=== PATIENT | female | born 1985 | race Hispanic/Latino ===

== ENCOUNTER 2024-08-19 09:54 | Inpatient (IN) | payer BC ==
[2024-08-19] MEDS ORDERED: NA CHLORIDE 0.9% 1,000 ML ONE ×2 (10:39→13:24)
[2024-08-19] MEDS ORDERED: FAMOTIDINE 20 MG/2 ML VIAL IV ONE (10:39)
[2024-08-19] MEDS ORDERED: HYDROMORPHONE HCL 0.5 MG/0.5 ML INJ ONE (10:46)
--- NOTE | 2024-08-19 10:56 | ER ---
Nurse's Notes [facility] Name: Kelley Crump Age: 38 yrs Sex: Female : 1985 Arrival Date: 08/19/2024 Time: 09:54 Bed 12 Private MD: Diagnosis: Other cholelithiasis without obstruction;Abdominal pain, Generalized Presentation: 08/19 10:15 Chief complaint: Patient states: lower abd , mid to lower back pain , had CT done iw yesterday that showed a gallstone ordered by Dr. Brown, consulted Lexx ad was told to come to ER if pain was severe, pain started a week ago, + nausea and diarrhea , denies urine symptoms. Coronavirus screen: At this time, the client does not indicate any symptoms associated with coronavirus-19. Ebola Screen: No symptoms or risks identified at this time. Initial Sepsis Screen: Does the patient meet any 2 criteria? No. Patient's initial sepsis screen is negative. Does the patient have a suspected source of infection? No. Patient's initial sepsis screen is negative. Risk Assessment: Do you want to hurt yourself or someone else? Patient reports no desire to harm self or others. 10:15 Method Of Arrival: Ambulatory iw 10:15 Acuity: JUDITH 3 iw Historical: - Allergies: 10:17 No Known Allergies; iw - PMHx: 10:17 Migraine; IBS; PCOS; Endometriosis of vagina; Anxiety; Depressive disorder; iw - PSHx: 10:17 hysterectomy; Tonsillectomy; carpal tunnel; Appendectomy; iw - Immunization history:: Adult Immunizations not up to date. - Infectious Disease History:: Denies. - Social history:: Smoking status: Patient denies any tobacco usage or history of. Patient uses alcohol, but reports only rare drinking. Assessment: 10:47 General: Appears distressed, uncomfortable. Pain: Complains of pain in abdomen. GI: ll1 Reports upper abdominal pain, diarrhea, nausea, vomiting. 11:21 Reassessment: No changes from previously documented assessment. Patient and/or family ll1 updated on plan of care and expected duration. Pain level reassessed. Patient is alert, oriented x 3, equal unlabored respirations, skin warm/dry/pink. 11:58 Reassessment: No changes from previously documented assessment. Patient and/or family ll1 updated on plan of care and expected duration. Pain level reassessed. Patient is alert, oriented x 3, equal unlabored respirations, skin warm/dry/pink. Vital Signs: 10:15 BP 129 / 83; Pulse 95; Resp 16; Temp 97(TE); Pulse Ox 100% on R/A; Weight 58.06 kg; iw Height 5 ft. 2 in. ; Pain 9/10; 10:15 Body Mass Index 23.41 (58.06 kg, 157.48 cm) iw 10:15 Pain Scale: Adult iw ED Course: 09:55 Patient arrived in ED. al6 10:00 Billy Wilson DO is Attending Physician. ms3 10:17 Triage completed. iw 10:18 Arm band placed on. iw 10:48 Arminda Diamond, RENNY is Primary Nurse. ll1 10:48 Initial lab(s) drawn, by me, sent to lab. Inserted saline lock: 22 gauge in right iw antecubital area, using aseptic technique. Blood collected. Flushed with 10 mL NS. 10:55 Rodrick Harrell MD is Hospitalizing Provider. ms3 Administered Medications: 10:47 Drug: Famotidine IVP 20 mg IVP once; dilute with 10 mL 0.9% NaCl; give over 2 minutes iw Route: IVP; Site: right antecubital; 11:21 Follow up: Response: No adverse reaction ll1 10:48 Drug: NS 0.9% IV 1000 ml IV at 1 bolus Per protocol; to be given as a bolus over 60 iw minutes Route: IV; Rate: 1 bolus; Site: right antecubital; 10:48 Drug: HYDROmorphone IVP 0.5 mg IVP once Route: IVP; Site: right antecubital; ll1 11:21 Follow up: Response: No adverse reaction; Pain is decreased; RASS: Alert and Calm (0) ll1 11:21 Drug: Piperacillin-Tazobactam IVPB 3.375 grams IVPB once over 60 mins; (mix in NS 100 ll1 mL) Route: IVPB; Infused Over: 60 mins; Site: right antecubital; Outcome: 10:56 Decision to Hospitalize by Provider. ms3 13:00 Admitted to ER Hold. Please see [facility] for further documentation. aa5 13:00 Condition: stable 13:00 Instructed on the need for admit, Demonstrated understanding of instructions, 15:28 Patient left the ED. aa5 Signatures: Pam Romero RN RN iw Bel Barrientos RN RN aa5 Arminda Diamond RN RN ll1 Billy Wilson DO DO ms3 Brooklynn Morris6 Corrections: (The following items were deleted from the chart) 10:19 10:15 BP 129 / 83; Pulse 95bpm; Resp 16bpm; Pulse Ox 100% RA; 58.06 kg; Height 5 ft. 2 iw in.; BMI: 23.4; Pain 9/10, Adult; iw
--- NOTE | 2024-08-19 10:56 | EDPHYS ---
Physician Documentation [facility] Name: Kelley Crump Age: 38 yrs Sex: Female : 1985 Arrival Date: 08/19/2024 Time: 09:54 Bed 12 Private MD: ED Physician Billy Wilson HPI: 08/19 10:40 This 38 yrs old Female presents to ER via Ambulatory with complaints of ms3 Abdominal Pain, Back Pain, Nausea. 10:40 38-year-old female with past medical history of migraines, IBS, PCOS, endometriosis, ms3 anxiety, depression presents to the emergency department for epigastric abdominal pain that has been ongoing for 1 week. Patient states the pain radiates to her back. She states the pain is a 9/10. She denies any alleviating or inciting factors. Patient states last time she ate was yesterday.. Historical: - Allergies: 10:17 No Known Allergies; iw - PMHx: 10:17 Migraine; IBS; PCOS; Endometriosis of vagina; Anxiety; Depressive disorder; iw - PSHx: 10:17 hysterectomy; Tonsillectomy; carpal tunnel; Appendectomy; iw - Immunization history:: Adult Immunizations not up to date. - Infectious Disease History:: Denies. - Social history:: Smoking status: Patient denies any tobacco usage or history of. Patient uses alcohol, but reports only rare drinking. ROS: 10:40 Constitutional: Negative for fever, and chills. Cardiovascular: Negative for chest ms3 pain, and palpitations. Respiratory: Negative for shortness of breath, cough, wheezing, and pleuritic chest pain, 10:40 MS/Extremity: Negative for injury and deformity, Skin: Negative for injury, rash, and discoloration, 10:40 Abdomen/GI: Positive for abdominal pain, nausea, diarrhea, Negative for vomiting, Exam: 10:40 Constitutional: This is a well developed, well nourished patient who is awake, alert, ms3 and in no acute distress. Cardiovascular: Regular rate and rhythm with a normal S1 and S2. No gallops, murmurs, or rubs. Normal PMI, no JVD. No pulse deficits. Respiratory: Lungs have equal breath sounds bilaterally, clear to auscultation and percussion. No rales, rhonchi or wheezes noted. No increased work of breathing, no retractions or nasal flaring. 10:40 Skin: Warm, dry with normal turgor. Normal color with no rashes, no lesions, and no evidence of cellulitis. 10:40 Abdomen/GI: Inspection: abdomen appears normal, Bowel sounds: normal, Palpation: moderate abdominal tenderness, in all quadrants, Vital Signs: 10:15 BP 129 / 83; Pulse 95; Resp 16; Temp 97(TE); Pulse Ox 100% on R/A; Weight 58.06 kg; iw Height 5 ft. 2 in. ; Pain 9/10; 10:15 Body Mass Index 23.41 (58.06 kg, 157.48 cm) iw 10:15 Pain Scale: Adult iw MDM: 10:38 Medical Screening Exam initiated ms3 10:40 Differential diagnosis: Cholelithiasis Pancreatitis versus abdominal pain. ms3 10:42 External Records Reviewed: Outpatient labs: Labs from August 19, 2024. Sodium 138, ms3 potassium 4.2, chloride 107, bicarb 28, glucose 97, creatinine 0.82. AST 13, ALT 19, alk phos 79, total bilirubin 0.7. CBC white blood count 6.6, hemoglobin 15.7, hematocrit 45.1, platelets 203.. Outpatient radiology: CT abdomen pelvis without IV contrast performed August 18, 2024 reveals prominent right adnexal 4.7 cm mass versus complex cyst or conglomerate of cysts. Large cholesterol containing gallstones. No other acute or concerning abnormalities in the abdomen or pelvis.. 10:59 Data reviewed: vital signs, nurses notes, lab test result(s), radiologic studies, and ms3 as a result, I will admit patient. Consideration of Admission/Observation Patient was admitted/placed on observation. I considered the following discharge prescriptions or medication management in the emergency department Medications were administered in the Emergency Department. See MAR. Counseling: I had a detailed discussion with the patient and/or guardian regarding the historical points, exam findings, and any diagnostic results supporting the discharge/admit diagnosis, lab results, radiology results, the need for further work-up and treatment in the hospital. ED course: Discussed case with Dr. Hallman and he will take patient to operating room tomorrow afternoon. Discussed case with Dr. Harrell's team and they accept patient for admission. Discussed plan for admission with patient she understands and agrees with plan.. 08/19 10:18 Order name: Lipase; Complete Time: 11:27 ms3 08/19 12:06 Order name: Urinalysis w/ reflexes EDMS 08/19 12:06 Order name: CBC with Automated Diff EDMS 08/19 12:06 Order name: CBC with Automated Diff EDMS 08/19 12:06 Order name: CBC with Automated Diff EDMS 08/19 12:06 Order name: CBC with Automated Diff EDMS 08/19 12:06 Order name: CBC with Automated Diff EDMS 08/19 12:06 Order name: Comprehensive Metabolic Panel EDMS 08/19 12:06 Order name: Comprehensive Metabolic Panel EDMS 08/19 12:06 Order name: Comprehensive Metabolic Panel EDMS 08/19 12:06 Order name: Comprehensive Metabolic Panel EDMS 08/19 12:06 Order name: Comprehensive Metabolic Panel EDMS 08/19 10:18 Order name: IV Saline Lock; Complete Time: 10:44 ms3 08/19 10:18 Order name: Labs collected and sent; Complete Time: 10:44 ms3 Administered Medications: 10:47 Drug: Famotidine IVP 20 mg IVP once; dilute with 10 mL 0.9% NaCl; give over 2 minutes iw Route: IVP; Site: right antecubital; 11:21 Follow up: Response: No adverse reaction ll1 10:48 Drug: NS 0.9% IV 1000 ml IV at 1 bolus Per protocol; to be given as a bolus over 60 iw minutes Route: IV; Rate: 1 bolus; Site: right antecubital; 10:48 Drug: HYDROmorphone IVP 0.5 mg IVP once Route: IVP; Site: right antecubital; ll1 11:21 Follow up: Response: No adverse reaction; Pain is decreased; RASS: Alert and Calm (0) ll1 11:21 Drug: Piperacillin-Tazobactam IVPB 3.375 grams IVPB once over 60 mins; (mix in NS 100 ll1 mL) Route: IVPB; Infused Over: 60 mins; Site: right antecubital; Disposition Summary: 08/19/24 10:56 Hospitalization Ordered Notes: Hospitalization Status: Inpatient Admission ms3 Provider: Rodrick Harrell ms3 Location: Telemetry/[facility]Sur (Inpatient) ms3 Condition: Stable ms3 Problem: new ms3 Symptoms: are unchanged ms3 Bed/Room Type: Standard ms3 Room Assignment: 408(08/19/24 13:57) bc6 Diagnosis - Other cholelithiasis without obstruction ms3 - Abdominal pain, Generalized ms3 Forms: - Medication Reconciliation Form ms3 - SBAR form ms3 - Leadership Thank You Letter ms3 Signatures: Dispatcher [employer] EDMS Pam Romero RN RN iw Arminda Diamond RN RN ll1 Billy Wilson DO DO ms3 Kady Sanchez bc6 Corrections: (The following items were deleted from the chart) 10:18 10:18 LIPASE+C.LAB.BRZ ordered. EDMS EDMS 10:50 10:18 CBC+H.LAB.BRZ ordered. EDMS EDMS 10:50 10:18 COMPREHENSIVE METABOLIC PANEL+C.LAB.BRZ ordered. EDMS EDMS 13:57 10:56 ms3 bc6
[2024-08-19] MEDS ORDERED: PIPERACIL/TAZO 3.375 GM VIAL IV ONE (11:11)
[2024-08-19] MEDS ORDERED: MORPHINE 2 MG/ML SYR ONE (13:24)
[2024-08-19] MEDS ORDERED: ONDANSETRON 4 MG/2 ML VIAL ONE (13:24)
[2024-08-19] MEDS: NA CHLORIDE 0.9% 1,000 ML IV SCH (13:38)
[2024-08-19] MEDS: ONDANSETRON 4 MG/2 ML VIAL IV PRN (13:38)
[2024-08-19] MEDS: MORPHINE 2 MG/ML SYR IV PRN (13:38)
[2024-08-19 14:26] VITALS: BMI 23.3
--- NOTE | 2024-08-19 15:35 | P.HP ---
Certification for Inpatient Patient admitted to: Observation With expected LOS: <2 Midnights Patient will require the following post-hospital care: None Practitioner: I am a practitioner with admitting privileges, knowledge of patient current condition, hospital course, and medical plan of care. Services: Services provided to patient in accordance with Admission requirements found in Title 42 Section 412.3 of the Code of Federal Regulations Patient History Date of Service: 08/19/24 Reason for admission: Abdominal tenderness History of Present Illness: 38-year-old female with history of GERD, allergies, hyperlipidemia presents to the emergency department with chief complaint of abdominal pain. She reports that she has been having abdominal pain for 7 to 8 days now but has been significantly worse last 2 days with associated nausea and chills. She denies similar episodes in the past, she reports that the pain goes all the way across her abdomen and around her back. She had outpatient labs performed earlier today which showed a normal chemistry, normal LFTs white blood cell count of 6.6 hemoglobin 15.7 hematocrit 45.1 as well as an outpatient CT of the abdomen pelvis on 08/18/2024 which showed prominent right adnexal 4.7 cm mass versus complex cyst or conglomerate of cysts. This can be better evaluated on a dedicated pelvic ultrasound. Large cholesterol containing gallstones. No other acute or concerning abnormalities in the abdomen or pelvis. Patient still with ongoing abdominal/back pain, she has more tenderness in the left side of her abdomen and the paraspinous muscles. ED staff discussed case with general surgery who wished patient be admitted to the hospitalist service and will consult. Patient informed about pelvic mass versus cyst and given copy of CT report. Allergies No Known Allergies Allergy (Unverified 08/19/24 12:21) Home Medications: Atorvastatin Calcium 40 mg PO BEDTIME 08/19/24 Cetirizine HCl [Zyrtec] 10 mg PO DAILY 08/19/24 Montelukast [Singulair*] 10 mg PO DAILY 08/19/24 - Past Medical/Surgical History -: Migraines -: IBS -: PCOS -: Endometriosis-vagina -: anxiety -: depression -: seasonal allergies -: section -: Hysterectomy with bladder lift -: Appendix -: Carpal tunnel/ulnar surgery right wrist Psychosocial/ Personal History: Lives at home with family - Social History Smoking Status: Never smoker Alcohol use: No CD- Drugs: No Caffeine use: Yes Place of Residence: Home Review of Systems 10-point ROS is otherwise unremarkable General: Chills Gastrointestinal: Nausea, Abdominal Pain Physical Examination - Vital Signs Temperature: 97.8 F Blood Pressure: 110/72 Pulse: 73 Respirations: 16 Pulse Ox (%): 98 - Physical Exam General: Alert, In no apparent distress, Oriented x3 HEENT: Atraumatic, PERRLA, EOMI Neck: Supple, 2+ carotid pulse no bruit, No LAD Respiratory: Clear to auscultation bilaterally, Normal air movement Cardiovascular: Regular rate/rhythm, Normal S1 S2 Gastrointestinal: Normal bowel sounds, Tenderness (Primarily left-sided abdominal tenderness, tenderness to palpation of the back as well) Musculoskeletal: No tenderness Integumentary: No rashes Neurological: Normal speech, Normal strength at 5/5 x4 extr, Normal affect - Studies Laboratory Data (last 24 hrs) 08/19/24 08/19/24 10:45 10:18 WBC Cancelled Hgb Cancelled Hct Cancelled Plt Count Cancelled Sodium Cancelled Potassium Cancelled BUN Cancelled Creatinine Cancelled Glucose Cancelled Total Bilirubin Cancelled AST Cancelled ALT Cancelled Alkaline Phosphatase Cancelled Lipase 46 Assessment and Plan - Plan Assessment: Abdominal tenderness/back pain with cholelithiasis Pelvic mass/cysts GERD Hyperlipidemia Allergies Plan: Abdominal tenderness/back pain with cholelithiasis Pelvic mass/cysts General Surgery consulted Clear liquids for now, n.p.o. after midnight Continue empiric antibiotics with Zosyn As needed pain medications and antiemetics Serial abdominal exams Discussed CT findings in regards to pelvic mass versus cyst, patient given CT report GERD Hyperlipidemia Allergies Continue home medications when verified DVT PPX: SCD Code status: Full Discharge Plan: Home Plan to discharge in: 24 Hours - Advance Directives Does patient have a Living Will: No Does patient have a Durable POA for Healthcare: No - Code Status/Comfort Care Code Status Assessed: Yes (Full code) Critical Care: No Time Spent Managing Pts Care (In Minutes): 62
[2024-08-19 17:04] LABS: Urine Bilirubin NEGATIVE (Negative); Urine Blood Negative (Negative); Urine Clarity Clear (Clear); Urine Color Colorless (Yellow); Urine Glucose NEGATIVE (Negative); Urine Ketones TRACE (Negative); Urine Microscopic Reflex YN NO UMIC; Urine Nitrite NEGATIVE (Negative); Urine Protein NEGATIVE (Negative); Urine Urobilinogen Normal (Normal)
[2024-08-19] MEDS: PIPER TAZO 3.375 GM in NA CHLORIDE 0.9% 100 ML IV SCH (17:28)
--- NOTE | 2024-08-19 19:05 | CON ---
Date of Consultation: 08/19/2024 History Of Present Illness: Ms. Benson is a 38-year-old patient who came with abdominal pain for t he entire week. She has been trying to treat that at home. She has history of irritable bowel syndr ome. She has not been improved, but she has been commenting on it including seeing the GI doctor, harleen welsh upper endoscopies, colonoscopies, but last week she has been having abdominal pain. The last 2 days, it got worse. 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 Review of Systems: Nausea, vomiting, bloating, abdominal pain. No dysuria, hematuria, hematochezia, or melena. No rece nt traveling out of the country. No family member sick at home. Review of systems ten points, other chavez, unremarkable. Allergies: NONE. Medications: Reviewed including Zyrtec and Singulair. Past Medical History: Includes migraines endometriosis, PCOS, anxiety, depression. Past Surgical History: Include hysterectomy with bladder lift and , appendix, carpal tunnel and ulnar surgery. Social History: She does not smoke. She does not drink alcohol. Physical Examination: Vital Signs: Reviewed. General: The patient is awake, alert, oriented x3. HEENT: Pupils are equal and reactive and anicteric. Neck: Supple. Chest: Clear. Heart: S1, S2. Abdomen: Epigastric right upper quadrant tenderness with Hernandez sign positive. Breasts: Deferred. Rectal: Deferred. Pelvic: Deferred. Extremities: Good capillary refill. Laboratory Data: Blood work shows WBC count and chemistry, it is canceled, I am not sure exactly wha t that means. The lipase is 46. I believe it is going to be repeated. The patient had a CAT scan d one of the abdomen and pelvis yesterday that shows a prominent right adnexal mass versus a complex cy st. Large gallstones. Assessment: This is a 38-year-old patient with epigastric right upper quadrant pain for a week, radi ating to the back, nausea, vomiting, diagnosed with symptomatic cholelithiasis, acute cholecystitis. The patient wants the gallbladder out. So we explained the options of laparoscopic, possible open c holecystectomy with benefits, alternatives, and risks including, but not limited to, infection, bleed ing, damage to adjacent structures, anesthesia complication, choledocholithiasis, bile leak, pancreat itis, [place], and even . She also understands this may not relieve any symptoms, she might need mor e than one surgical intervention. AYSE/ROYER Voice ID: [id number] Report ID: [id number]
[2024-08-19 21:29] LABS: Absolute Lymphocytes (CBC) 1.9 K/uL (0.7-4.9); Absolute Monocytes 0.5 K/uL (0.1-1.3); Absolute Neutrophil 4.3 K/uL (1.8-8.0); Basophils % 0.5 % (0-1.3); Eosinophils % 0.3 % (0-4.4); Hematocrit 39.8 % (36.0-45.0); Hemoglobin 14.1 g/dL (12.0-15.0); Lymphocytes % 27.4 % (15.3-44.8); MCH 31.1 pg (27.0-35.0); MCHC 35.5 g/dL (32.0-36.0); MCV 87.7 fL (80-100); Monocytes % 7.9 % (3.3-12.3); Neutrophils % 63.9 % (41.7-73.7); Platelets 169 thou/uL (152-406); RBC Red Blood Cell Count 4.54 M/uL (3.86-4.86); Red Cell Distribution Width 12.1 % (12.1-15.2)
[2024-08-19 21:48] LABS: ALT/SGPT 17 U/L (13-56); Albumin 3.8 g/dL (3.4-5.0); Albumin/Globulin Ratio 1.1 (1.1-1.8); Alkaline Phosphatase 63 U/L (45-117); Anion Gap 9.7 mEq/L (5.0-15.0); BUN Blood Urea Nitrogen 7 mg/dL (7-18); Bicarbonate 25 mEq/L (21-32); Bilirubin Direct 0.2 mg/dL (0-0.2); Bilirubin Indirect, Calculated 0.6 mg/dL (0.2-0.8); Bilirubin Total 0.8 mg/dL (0.2-1.0); Globulin 3.5 g/dL (2.3-3.5); Glomerular Filtration Rate 115 ml/min (=/>90); Glucose Level 82 mg/dL (74-106); Potassium 3.7 mEq/L (3.5-5.1); Protein, Total 7.3 g/dL (6.4-8.2); Sodium Level 140 mEq/L (136-145)
[2024-08-19 21:51] LABS: AST/SGOT < 10 U/L (15-37)
[2024-08-20] MEDS: NA CHLORIDE 0.9% 100 ML ONE (00:10)
[2024-08-20] MEDS: KETOROLAC 30 MG/ML INJ IV ONE (05:07)
[2024-08-20 06:41] LABS: Absolute Lymphocytes (CBC) 1.6 K/uL (0.7-4.9); Absolute Monocytes 0.4 K/uL (0.1-1.3); Absolute Neutrophil 3.5 K/uL (1.8-8.0); Basophils % 0.6 % (0-1.3); Eosinophils % 0.8 % (0-4.4); Hematocrit 39.5 % (36.0-45.0); Hemoglobin 13.9 g/dL (12.0-15.0); Lymphocytes % 28.4 % (15.3-44.8); MCH 30.9 pg (27.0-35.0); MCHC 35.1 g/dL (32.0-36.0); MCV 88.2 fL (80-100); MPV 9.1 fL (7.6-11.3); Monocytes % 7.2 % (3.3-12.3); Nucleated Red Blood Cells % 0.1 % (0-0); Platelets 170 thou/uL (152-406); RBC Red Blood Cell Count 4.49 M/uL (3.86-4.86); Red Cell Distribution Width 12.2 % (12.1-15.2)
[2024-08-20 07:01] LABS: ALT/SGPT 16 U/L (13-56); Albumin 3.6 g/dL (3.4-5.0); Albumin/Globulin Ratio 1.1 (1.1-1.8); Alkaline Phosphatase 58 U/L (45-117); Anion Gap 5.1 mEq/L (5.0-15.0); BUN Blood Urea Nitrogen 7 mg/dL (7-18); Bicarbonate 25 mEq/L (21-32); Bilirubin Total 0.8 mg/dL (0.2-1.0); Globulin 3.3 g/dL (2.3-3.5); Glomerular Filtration Rate 106 ml/min (=/>90); Glucose Level 87 mg/dL (74-106); Potassium 4.1 mEq/L (3.5-5.1); Protein, Total 6.9 g/dL (6.4-8.2); Sodium Level 137 mEq/L (136-145)
[2024-08-20 07:02] LABS: AST/SGOT < 10 U/L (15-37)
[2024-08-20] MEDS: ENOXAPARIN 40 MG/0.4 ML SQ SCH (07:20)
--- NOTE | 2024-08-20 10:36 | P.PN ---
Date of Service: 08/20/24 Subjective: Still reporting similar abdominal pain/back pain to yesterday No acute overnight Waiting likely surgical cholecystectomy today ROS: 10 point ROS as noted above, otherwise negative Physical exam GEN: Alert, oriented, NAD HEENT: Normal conjunctiva, sclera anicteric CV: Regular rate and rhythm, no edema Pulm: Nonlabored respirations on room air ABD: Soft, mild abdominal pain, worse in the left side of the abdomen, nondistended MSK: No joint tenderness Integumentary: No rashes Neuro: Normal speech, normal affect Vitals reviewed Assessment: Abdominal tenderness/back pain with cholelithiasis Pelvic mass/cysts GERD Hyperlipidemia Allergies Plan: Abdominal tenderness/back pain with cholelithiasis Pelvic mass/cysts General Surgery consulted NPO for possible cholecystectomy today Continue empiric antibiotics with Zosyn As needed pain medications and antiemetics Serial abdominal exams Discussed CT findings in regards to pelvic mass versus cyst, patient given CT report-General Surgery likely to evaluate intraoperatively as well GERD Hyperlipidemia Allergies Continue home medications when verified DVT PPX: SCD Code status: Full Discharge Plan: Home Plan to discharge in: 24 Hours Time Spent Managing Pts Care (In Minutes): 35
[2024-08-20] MEDS: FENTANYL CITR 100 MCG/2 ML IV ONE (10:53)
[2024-08-20] MEDS ORDERED: NEOSTIGMINE 1 MG/ML -10 ML VIAL ONE (12:55)
[2024-08-20] MEDS ORDERED: KETOROLAC 30 MG/ML INJ ONE (12:55)
[2024-08-20] MEDS ORDERED: ROCURONIUM 50 MG/5 ML VIAL IV ONE (12:55)
[2024-08-20] MEDS ORDERED: dexAMETHasone 10 MG/ML VIAL ONE (12:55)
[2024-08-20] MEDS ORDERED: ONDANSETRON 4 MG/2 ML VIAL ONE (12:55)
[2024-08-20] MEDS ORDERED: propofoL 200 MG/20 ML VIAL IV ONE (12:55)
[2024-08-20] MEDS ORDERED: FENTANYL CITR 100 MCG/2 ML ONE (12:55)
[2024-08-20] MEDS ORDERED: LIDOCAINE 1% MPF 5 ML VIAL ONE (12:55)
[2024-08-20] MEDS ORDERED: GLYCOPYRROLATE 0.2 MG/ML SYR ONE ×2 (12:55)
[2024-08-20] MEDS ORDERED: MIDAZOLAM HCL 2 MG/2 ML INJ ONE (12:57)
[2024-08-20] MEDS: Ringers Lactate 1,000 ML IV ONE (12:59)
[2024-08-20] MEDS ORDERED: Mastisol Adhesive Liq ONE (13:47)
--- NOTE | 2024-08-20 13:48 | P.BOP ---
Preoperative diagnosis: acute cholecystitis, symptomatic cholelithiasis Postoperative diagnosis: same Primary procedure: Laparoscopic cholecystectomy Leather Toggler: Ayanna Kim (Farida) Estimated blood loss: <10cc Specimen: gb Anesthesia: General Complications: None Transferred to: Recovery Room Condition: Good
[2024-08-20] MEDS: HYDROCODONE/APAP 5/325 MG TAB PO PRN (15:01)
--- NOTE | 2024-08-20 17:00 | OP ---
Date of Procedure: 08/20/2024 Surgeon: Wally Hallman MD Carpenter'S Helper: COLTON Wiggins Preoperative Diagnoses: Acute cholecystitis, symptomatic cholelithiasis. Postoperative Diagnoses: Acute cholecystitis, symptomatic cholelithiasis. Procedure: Laparoscopic cholecystectomy. Estimated Blood Loss: Less than 10 cc. Specimen: Gallbladder. Anesthesia: General plus local. Complications: None. Indications: This is a case of a 38-year-old patient who comes to us with above diagnoses. Fully ex plained the benefits, alternatives, and risks of laparoscopic possible open cholecystectomy, which in clude, but not limited to infection, bleeding, damage to adjacent structures, anesthesia complication , choledocholithiasis, bile leak, pancreatitis, [place], and even . She also understands this may no t relieve symptoms. She might need more than one surgical intervention. She understood, signed a co nsent. 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 Description Of Procedure: The patient was brought to the operating room, placed in supine position. Anesthesia was done without complication. Abdominal area was prepped and draped in sterile fashion. Marcaine 0.5% was injected for local anesthetic followed by sharp incision of the skin in the infra umbilical region. Incision was carried down to fascia, which was opened under direct vision. Perito neum was encountered, opened under direct vision. Vicryl #1 placed inside the fascia. Len trocar was carefully introduced. Pneumoperitoneum was obtained. I placed 3 more trocars, 5 mm each one of them. 1 in the epigastric area, 2 in the right upper quadrant using same technique which consisted of local anesthetic. Sharp incision of the skin and introduction of the trocars under direct vision. This allowed me to put a grasper in the fundus of the gallbladder, another grasper in the infundibu lum, retracting the gallbladder in the inferolateral fashion exposing the triangle of Calot, obtainin g critical view. Cystic duct and cystic artery were clearly isolated circumferentially and a connect ion between those and the gallbladder were clearly identified. I proceeded to ligate those by using at least 3 clips proximal, 1 clip distal, ligation in middle. Same was done with the cystic artery. No bile leak. No bleeding. The gallbladder was removed from liver using Bovie cauterizer and remov ed from abdominal cavity using EndoCatch through the umbilical incision. The area was inspected once again. No bile leak. No bleeding. At that moment, I proceeded to remove the trocars under direct vision. Deflated the pneumoperitoneum. Closed the fascia with #1 Vicryl, irrigated subcutaneous tis calvin, closed with 3-0 chromic and skin in subcuticular fashion with 3-0 chromic and Steri-Strips on to p. Sponge count and instrument counts were correct. The patient was sent to Recovery in stable cond ition. AYSE/ROYER Voice ID: [id number] Report ID: [id number]
[2024-08-21 06:27] LABS: Absolute Monocytes 0.7 K/uL (0.1-1.3); Absolute Neutrophil 7.5 K/uL (1.8-8.0); Basophils % 0.3 % (0-1.3); Hematocrit 36.7 % (36.0-45.0); Hemoglobin 12.9 g/dL (12.0-15.0); Lymphocytes % 11.2 % (15.3-44.8); MCH 30.9 pg (27.0-35.0); MCHC 35.2 g/dL (32.0-36.0); MCV 87.8 fL (80-100); Monocytes % 7.4 % (3.3-12.3); Neutrophils % 81.1 % (41.7-73.7); Nucleated Red Blood Cells % 0.1 % (0-0); Platelets 168 thou/uL (152-406); RBC Red Blood Cell Count 4.18 M/uL (3.86-4.86)
[2024-08-21 06:39] LABS: Albumin 3.3 g/dL (3.4-5.0); Albumin/Globulin Ratio 1.1 (1.1-1.8); Anion Gap 8.5 mEq/L (5.0-15.0); Bilirubin Total 0.9 mg/dL (0.2-1.0); Potassium 3.5 mEq/L (3.5-5.1); Protein, Total 6.3 g/dL (6.4-8.2)
[2024-08-21] MEDS: POTASSIUM CL SA 10 MEQ TAB PO ONE (08:33)
[2024-08-21 09:26] VITALS: O2SAT 98
--- NOTE | 2024-08-21 13:25 | PN ---
Status post laparoscopic cholecystectomy with abdominal pain for a week, nausea and vomiting. The pa luis is feeling better, still nauseous. She cannot tolerate full diet yet. Abdomen is benign. Ext remity no pain. The plan from surgical standpoint, once she tolerates diet, she is able to go home, follow in my office in a week. I explained to her the importance of no heavy lifting, the importance of following up, how to take care of the incisions, and avoid strange food. She understood. AYSE/ROYER Voice ID: [id number] Report ID: [id number]
[2024-08-21] MEDS: BISACODYL E.C. 5 MG TAB PO SCH (16:40)
--- NOTE | 2024-08-21 18:43 | P.PN ---
Date of Service: 08/21/24 Subjective: Reports abdominal pain, able to ambulate, cannot tolerate a regular diet Preparing for discharge in the AM, stopped morphine ROS: 10 point ROS as noted above, otherwise negative Physical exam GEN: Alert and oriented x3, NAD HEENT: Normal conjunctiva, sclera anicteric CV: Regular rate and rhythm, no edema Pulm: Nonlabored respirations on room air ABD: Soft, mild abdominal pain, worse in the left side of the abdomen, hyperactive bowel sounds MSK: No joint tenderness Integumentary: No rashes Neuro: Normal speech, normal affect Vitals reviewed Assessment: Abdominal tenderness/back pain with cholelithiasis Pelvic mass/cysts GERD Hyperlipidemia Allergies Plan: Abdominal tenderness/back pain with cholelithiasis Pelvic mass/cysts General Surgery following NPO for possible cholecystectomy today Continue empiric antibiotics with Zosyn As needed pain medications and antiemetics Serial abdominal exams Discussed CT findings in regards to pelvic mass versus cyst, patient given CT report-General Surgery likely to evaluate intraoperatively as well GERD Hyperlipidemia Allergies Chronic pain Continue home medications as appropriate Reports pain medications do not work, will recommend seeing a pain management doctor for better help in that area DVT PPX: SCD Code status: Full Discharge Plan: Home Plan to discharge in: in the AM
[2024-08-22 05:18] LABS: Specific Gravity 1.011 (1.005-1.030); Sqamous Epithelial <5 /HPF (None Seen); Urine Bacteria <20 /HPF (<20); Urine Bilirubin NEGATIVE (Negative); Urine Blood Negative (Negative); Urine Clarity Clear (Clear); Urine Color Colorless (Yellow); Urine Culture Reflex Order NOT NEEDED; Urine Glucose NEGATIVE (Negative); Urine Ketones NEGATIVE (Negative); Urine Microscopic Reflex YN ORDER UMIC; Urine Nitrite NEGATIVE (Negative); Urine Protein NEGATIVE (Negative); Urine RBC <5 /HPF (None Seen); Urine Urobilinogen Normal (Normal); Urine WBC <5 /HPF (<5)
[2024-08-22 05:59] LABS: Absolute Eosinophils 0.1 K/uL (0-0.5); Absolute Lymphocytes (CBC) 1.9 K/uL (0.7-4.9); Absolute Monocytes 0.5 K/uL (0.1-1.3); Absolute Neutrophil 4.5 K/uL (1.8-8.0); Basophils % 0.4 % (0-1.3); Eosinophils % 1.2 % (0-4.4); Hematocrit 37.6 % (36.0-45.0); Hemoglobin 13.4 g/dL (12.0-15.0); Lymphocytes % 26.6 % (15.3-44.8); MCH 31.1 pg (27.0-35.0); MCHC 35.5 g/dL (32.0-36.0); MCV 87.6 fL (80-100); MPV 8.2 fL (7.6-11.3); Monocytes % 7.2 % (3.3-12.3); Neutrophils % 64.6 % (41.7-73.7); Nucleated Red Blood Cells % 0.1 % (0-0); Platelets 187 thou/uL (152-406); RBC Red Blood Cell Count 4.29 M/uL (3.86-4.86); Red Cell Distribution Width 12.1 % (12.1-15.2)
[2024-08-22 06:38] LABS: Albumin 3.2 g/dL (3.4-5.0); Anion Gap 6.9 mEq/L (5.0-15.0); Bilirubin Total 0.6 mg/dL (0.2-1.0); Globulin 3.1 g/dL (2.3-3.5); Potassium 3.9 mEq/L (3.5-5.1); Protein, Total 6.3 g/dL (6.4-8.2)
--- NOTE | 2024-08-22 08:41 | RAD REPORT ---
EXAM: XR Abdomen 1 View (KUB) HISTORY: [facility] abdominal pain, weakness, post op COMPARISON: None FINDINGS: Single view of the abdomen shows a nonspecific, nonobstructive bowel gas pattern. No suspi cious calcifications are seen. The bones are unremarkable. Right upper quadrant surgical clips suggest prior cholecystectomy. IMPRESSION: Unremarkable exam
[2024-08-22] MEDS: POTASSIUM CL SA 10 MEQ TAB PO ONE (09:25)
--- NOTE | 2024-08-22 09:25 | P.DS ---
Admission Date: 08/21/24 Discharge Date: 08/22/24 Disposition: ROUTINE DISCHARGE Discharge Condition: GOOD Reason for Admission: Abdominal tenderness Brief History of Present Illness: Diagnosis Abdominal tenderness/back pain with cholelithiasis Pelvic mass/cysts GERD Hyperlipidemia Allergies HPI 08/19/24 38-year-old female with history of GERD, allergies, hyperlipidemia presents to the emergency department with chief complaint of abdominal pain. She reports that she has been having abdominal pain for 7 to 8 days now but has been significantly worse last 2 days with associated nausea and chills. She denies similar episodes in the past, she reports that the pain goes all the way across her abdomen and around her back. She had outpatient labs performed earlier today which showed a normal chemistry, normal LFTs white blood cell count of 6.6 hemoglobin 15.7 hematocrit 45.1 as well as an outpatient CT of the abdomen pelvis on 08/18/2024 which showed prominent right adnexal 4.7 cm mass versus complex cyst or conglomerate of cysts. This can be better evaluated on a dedicated pelvic ultrasound. Large cholesterol containing gallstones. No other acute or concerning abnormalities in the abdomen or pelvis. Patient still with ongoing abdominal/back pain, she has more tenderness in the left side of her abdomen and the paraspinous muscles. ED staff discussed case with general surgery who wished patient be admitted to the hospitalist service and will consult. Patient informed about pelvic mass versus cyst and given copy of CT report. Hospital Course: Kelley was admitted and treated for abdominal pain including at the right upper quadrant pain. Outpatient CT of the abdomen pelvis on 08/18/2024 which showed prominent right adnexal 4.7 cm mass versus complex cyst or conglomerate of cysts. Dr. Hallman was consulted concerning cholelithiasis and performed surgery on 08/20. On 08/22, KUB showing nonremarkable exam. Dr. Hallman has evaluated and clear her for discharge with follow up at his clinic. She is able to tolerate full liquid diet and ambulate independently. Pain is better control but she will need to follow up with a pain management doctor for further pain control of chronic pain she is experiencing. She will need to followup with [facility] for further evaluation of the right adnexal cyst. Augmentin and norco have been prescribed. Physical exam GEN: AAO x3, NAD HEENT: Normal conjunctiva, sclera anicteric CV: RRR, S1 S2 present Pulm: Nonlabored respirations, on RA ABD: Soft on palpation, mild abdominal surgical pain MSK: No joint tenderness Integumentary: No rashes Neuro: Normal speech, normal affect Vital Signs/Physical Exam: Temp Pulse Resp BP Pulse Ox 98.2 F 69 16 112/64 100 08/22/24 08:00 08/22/24 08:00 08/22/24 08:00 08/22/24 08:00 08/22/24 08:00 Laboratory Data at Discharge: WBC 7.00 thou/uL (4.3-10.9) 08/22/24 05:51 Hgb 13.4 g/dL (12.0-15.0) 08/22/24 05:51 Hct 37.6 % (36.0-45.0) 08/22/24 05:51 Plt Count 187 thou/uL (152-406) 08/22/24 05:51 Sodium 140 mEq/L (136-145) 08/22/24 05:51 Potassium 3.9 mEq/L (3.5-5.1) 08/22/24 05:51 BUN 5 mg/dL (7-18) L 08/22/24 05:51 Creatinine 0.75 mg/dL (0.55-1.02) 08/22/24 05:51 Glucose 88 mg/dL (74-106) 08/22/24 05:51 Total Bilirubin 0.6 mg/dL (0.2-1.0) 08/22/24 05:51 AST 30 U/L (15-37) 08/22/24 05:51 ALT 48 U/L (13-56) 08/22/24 05:51 Alkaline Phosphatase 56 U/L (45-117) 08/22/24 05:51 Lipase 38 U/L (13-75) 08/20/24 06:19 Home Medications: Atorvastatin Calcium 40 mg PO BEDTIME 08/19/24 Cetirizine HCl [Zyrtec] 10 mg PO DAILY 08/19/24 Ipratropium [place] 15 ml NS BID 08/19/24 Montelukast [Singulair*] 10 mg PO DAILY 08/19/24 Pantoprazole [Protonix Tab*] 40 mg PO DAILY 08/19/24 Amox/Clavulanate [Augmentin 875-125 Tab] 875 mg PO BID 5 Days #10 tab 08/21/24 Hydrocodone 5/APAP 325 [Sylva 5/325*] 1 tab PO Q6H PRN #15 tab 08/22/24 New Medications: Amox/Clavulanate [Augmentin 875-125 Tab] 875 mg PO BID 5 Days #10 tab Hydrocodone 5/APAP 325 [Sylva 5/325*] 1 tab PO Q6H PRN #15 tab PRN Reason: Pain Scale 5-7 (Moderate) Physician Discharge Instructions: Admitted and treated for acute cholecystitis with laparoscopic cholecystectomy with Dr. Hallman on 08/20. Please follow up with Dr. Hallman in one week. Wear the abdominal binder for extra support. Make an appointment to see a pain management doctor who can provide considerable relief and monitoring for continued support. 1. Please call and schedule a follow-up appointment with your PCP in 3-5 days - Please follow-up with your PCP for medication refills/adjustments 2. Please call and schedule a follow-up appointment with Dr. Hallman in one week 3. Continue regular diet 4. activity restrictions- do not lift more than 10 pounds 5. Return to the ED if symptoms worsen New medications Augmentin 875 twice daily x 5 days [facility] [address], [place], [place] [phone] [facility] [address] [place], [place] [phone] Keep surgical area clean and dryfor 48h then may remove outer dressing and shower but keep sterile strips intact. [facility] Continuing Grizzlyman: SANDRA Heath [phone]. Expect a call within 1-2 business days from discharge. Call with questions or concerns. Alternate: SANDRA Galvan [phone]. Diet: AHA Activity: No lifting more than 10 lbs Followup: Wally Hallman MD [ACTIVE - CAN ADMIT] - 1 Week NONE,NONE [Primary Care Provider] -
[2024-08-22 12:03] VITALS: BP 104/65; TEMP 98.6
== END 2024-08-22 12:50 | disposition home or self-care (01) | DRG 419 ==
LOC: ER 09:54 → ERHOLD 12:01 → 4TH 14:58 → OBSVTOIN 08-21 09:13
PROVIDERS: ADMIT Hospitalist; ATTEND Hospitalist
PROC: 0FT44ZZ Resection of Gallbladder, Percutaneous Endoscopic Approach (ICD-10-PCS; principal; 2024-08-20 13:45)
DX: K80.00 Calculus of gallbladder with acute cholecystitis without obstruction (principal); G89.29 Other chronic pain; E78.5 Hyperlipidemia, unspecified; E28.2 Polycystic ovarian syndrome; K21.9 Gastro-esophageal reflux disease without esophagitis; N94.9 Unspecified condition associated with female genital organs and menstrual cycle; N94.89 Other specified conditions associated with female genital organs and menstrual cycle; Z79.899 Other long term (current) drug therapy; Z90.710 Acquired absence of both cervix and uterus
CPT/HCPCS: 36415; 74018; 80048; 80053; 80076; 81001; 81003; 83690; 85025; 88304; 96374; 96375; 99285; G0378; J1100; J1171; J2003; J2250; J2270; J2405; J2543; J2704; J2710; J3010; J7030; J7120